=== PATIENT | female | born 1960 | race African-American/Black ===

== ENCOUNTER 2025-01-08 11:55 | Outpatient (REF) | payer OTHER, SELFPAY ==
--- OUTSIDE RECORDS SUMMARY | 2025-01-08 12:41 | XMS_ITS | Clinical Summary ---
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 done in [place]. Medical History Medical History Date Comments Hypertension DX:Hypertension Ectopic 2004 DX:Ectopic pre gnancy Family History Medical History Relation Name Comments Breast cancer Neg Hx Relation Name Status Comments Brother 1 Alive Brother 2 Alive Daughter Alive HTN Father (Age 82) unknown Mother (Age 60s) unknown Sister 1 Alive Sister 2 Alive Sister 3 Alive Sister 4 Alive Social History Tobacco Use Types Packs/Day Years Used Date Smoking Tobacco: Never Smokeless Tobacco: Never Alcohol Use Standard Drinks/Week Comments No 0 (1 standard drink = 0.6 oz pur e alcohol) Comments Unknown Sex and Gender Information Value Date Recorded Sex Assigned at Not on file Legal Sex Female 1:40 PM EST Gender Identity Not on file Sexual Orientation Not on file Obstetrics History Last Filed Vital Signs Vital Sign Reading Time Taken Comments Blood Pressure 99/72 01/13/2023 1:03 PM EDT Pulse 67 01/13/2023 1:03 PM EDT Temperature - - Respiratory Rate - - Oxygen Saturation - - Inhaled Oxygen Concentration - - Weight 94.5 kg (208 lb 6.4 oz) 01/13/2023 1:03 P M EDT Height 165.1 cm (5' 5 ) 01/13/2023 1:03 PM EDT Body Mass Index 34.68 01/13/2023 1:03 PM EDT Plan of Treatment Health Maintenance Due Date Last Done Comments Pneumococcal Vaccine: 50+ Years (1 of 1 - PCV) 2008 Zoster Vaccines (1 of 2) 2008 Cholesterol Screening (Lipid Panel) 05/14/2022 Colorectal Cancer Screening: Colonoscopy 05/14/2022 Hepatitis C Screening 05/14/2022 Social Influencers of Health Screening 05/14/2022 Hypertension/CHF/CAD Annual BMP Blood Test 05/15/2022 Falls Risk Assessment 10/27/2023 COVID-19 Vaccine (1 - season) 2024 Depression Screening 06/05/2024 Breast Cancer Screening 01/10/2025 01/11/20 23, 01/07/2022, 01/05/2021, Additional history exists Influenza Vaccine (#1) 2025 DTaP,Tdap,and Td Vaccines (2 - Td or Tdap) 08/30/2026 08/30/2016 Osteoporosis Screening (Bone Density Screening) 03/01/2032 03/01/2022, 09/12/2018 RSV Immunization Adult Patients (1 - 1-dose 75+ series) 2033 HIB Vaccines Aged Out No longer eligi ble based on patient's age to complete this topic HPV Vaccines Aged Out No longer eligi ble based on patient's age to complete this topic Hepatitis A Vaccines Aged Out No long er eligible based on patient's age to complete this topic Hepatitis B Vaccines Aged Out No long er eligible based on patient's age to complete this topic IPV Vaccines Aged Out No longer eligi ble based on patient's age to complete this topic MMR Vaccines Aged Out No longer eligi ble based on patient's age to complete this topic Meningococcal ACWY Vaccine Aged Out N o longer eligible based on patient's age to complete this topic Meningococcal B Vaccine Aged Out No l onger eligible based on patient's age to complete this topic RSV Immunization Patients Under 20 months Aged Out No longer eligible based on patient's age to complete this topic Varicella Vaccines Aged Out No longer eligible based on patient's age to complete this topic Procedures Procedure Name Priority Date/Time Associated Diagnosis Comments SAWYER SCREENING DIGITAL Routine 01/10/2023 10:16 AM EDT Encounter for screening mammogram for malignant neoplasm of breast DXA BONE DENSITY STUDY 1+ SITS AXIAL SKEL Routine 03/01/2022 10:41 AM EDT Hypercalcemia from Last 3 Months or Most Recently Relevant to Health Maintenance Results * SAWYER SCREENING DIGITAL (01/10/2023 10:16 AM EDT) Anatomical Region Laterality Modality Mammography 01/10/2023 9:48 AM EDT Narrative 01/10/2023 10:[address] [facility] Diagnostic Imaging Department [address] [place] [id number] Patient: BOWERSPRECIOUS /Age/Sex: 1960 - 62 - F Unit#: [id number] Location/Status: [facility] CLI Mnemonic/Ordering Site: [facility] Ordering Physician: ARVIND BUSTOS MD Sawyer Screening Digital - 01/10/23 - 1006 Report Status:Signed HISTORY: The patient is a 62-year-old female presenting for routine screening mammography. FINDINGS: Full-field digital mammography of the breasts bilaterally consisting of tomosynthesis in MLO and CC projection is performed in the Mulue 2000-D unit. Computer aided detection utilizing the iCAD system was utilized. The breasts are again seen to be largely fatty-replaced (the breasts are almost entirely fatty, category A density), as also demonstrated on prior studies most recently 01/07/2022 and most remotely 09/15/2017. There is no cluster of microcalcifications, mass, or area of architectural distortion. There is no skin thickening or nipple retraction. IMPRESSION: No mammographic evidence of malignancy. A negative mammogram in the presence of a clinically suspicious palpable abnormality does not preclude the possibility of malignancy or alter the indicat ions for biopsy. BIRADS Code Class 1: Negative PQRI CPT II 3341F Code 87984, 48214 PQRI 225 CPT II 7025F Dictating Physician: JOSE ARMANDO EID MD Electronically Signed by: JOSE ARMANDO EID MD Dic Date/Time: 01/10/23 1009 Sign date/Time: 01/10/23 1016 Procedure Note Jose Armando Eid MD - 07/11/2023 [facility] Diagnostic Imaging Department [address] [place] [address] Patient: PRECIOUS BOWERS./Age/Sex: 1960 - 62 - F Unit#: [id number] [facility]Ordering Site: [facility] Ordering Physician: ARVIND BUSTOS MD Sawyer Screening Digital - 01/10/23 - 1006 Report Status:Signed HISTORY: The patient is a 62-year-old female presenting for routinescreening mammography. FINDINGS: Full-field digital mammography of the breasts bilaterallyconsisting of tomosynthesis in MLO and CC projection is performed in the [employer] Checke 2000-D unit. Computer aided detection utilizing the iCAD system wasutilized. The breasts are again seen to be largely fatty-replaced (the breasts arealmost entirely fatty, category A density), as also demonstrated on prior studiesmost recently 01/07/2022 and most remotely 09/15/2017. There is no cluster of microcalcifications, mass, or area of architectural distortion. There isno skin thickening or nipple retraction. IMPRESSION: No mammographic evidence of malignancy. A negative mammogram in the presence of a clinically suspicious palpable abnormality does not preclude the possibility of malignancy or alter theindicat ions for biopsy. BIRADS Code Class 1: Negative PQRI CPT II 3341F Code 28111, 34993 PQRI 225 CPT II 7025F Dictating Physician: JOSE ARMANDO EID MD Electronically Signed by: JOSE ARMANDO EID MD Dic Date/Time: 01/10/23 1009 Sign date/Time: 01/10/23 1016 us Arvind Bustos MD IMG BI PROCEDURES Final R esult * DXA BONE DENSITY STUDY 1+ SITS AXIAL SKEL (03/01/2022 10:41 AM EDT) Anatomical Region Laterality Modality Bone Densitometr y 01/12/2022 2:27 PM EDT Narrative 03/01/2022 12:42 PM EDT BONE DENSITY SCAN (DEXA): FINDINGS: Lumbar Spine T-score is -1.9. (SD relative to 20-29 y/o adult) Z-score is -1.0. (SD relative to age matched peers) This is considered osteopenia by WHO criteria. Left Hip T-score is -1.5. Z-score is -0.7. This is considered osteopenia by WHO criteria. Comparison exam(s): 09/12/2018. 4.3% loss of bone mineral density in the left hip, statistically significant at the 95% confidence level. No statistically significant change in lumbar spine bone mineral density. IMPRESSION: IMPRESSION: Osteopenia by WHO criteria. This patient has a 3.6% risk of major osteoporotic fracture and a 0.3% risk of hip fracture over the next 10 years. (World Health Organization Fracture Risk Assessment) [facility] Department of Internal Medicine recommends using National Osteoporosis Foundation (NOF) guidelines in treatment decisions related to osteoporosis. NOF guidelines suggest considering treatment for postmenopausal women and men aged 50 or older presenting with the following: History of hip or vertebral fracture. T-score = -2.5 (DXA) at the femoral neck, total hip, or spine, after appropriate evaluation to exclude secondary causes. Low bone mass (T-score between -1.0 and -2.5 at the femoral neck or spine) AND a 10-year probability of a hip fracture = 3% OR a 10-year probability of a major osteoporosis-related fracture = 20% based on the [place]-adapted WHO algorithm Please note that all treatment decisions require clinical judgment and consideration of individual patient factors, including patient preferences, co-morbidities, previous drug use, risk factors not captured in the FRAX model (e.g., frailty, falls, vitamin D deficiency, increased bone turnover, interval significant decline in bone density) and possible under- or over-estimation of fracture risk by FRAX. Optional alternative screening schedule based on darrell Kern., [facility] June 23, 2011 for patients with osteopenia (based on hip BMD T-score) is as follows: * advanced osteopenia (T scores -2.00 to -2.49), BMD testing every year * moderate osteopenia (T scores -1.50 to -1.99), BMD testing every 5 years mild osteopenia or normal BMD (T scores -1.50 and higher), BMD testing every 15 years Procedure Note Lina De La Paz MD - 05/24/2022 BONE DENSITY SCAN (DEXA): FINDINGS: Lumbar Spine T-score is -1.9. (SD relative to 20-29 y/o adult) Z-score is -1.0. (SD relative to age matched peers) This is considered osteopenia by WHO criteria. Left Hip T-score is -1.5. Z-score is -0.7. This is considered osteopenia by WHO criteria. Comparison exam(s): 09/12/2018. 4.3% loss of bone mineral density in theleft hip, statistically significant at the 95% confidence level. No statisticallysignificant change in lumbar spine bone mineral density. IMPRESSION: IMPRESSION: Osteopenia by WHO criteria. This patient has a 3.6% risk of majorosteoporotic fracture and a 0.3% risk of hip fracture over the next 10 years. (World HealthOrganization Fracture Risk Assessment) [facility] Department of Internal Medicine recommendsusing National Osteoporosis Foundation (NOF) guidelines in treatment decisions related toosteoporosis. NOF guidelines suggest considering treatment for postmenopausal women and menaged 50 or older presenting with the following: History of hip or vertebral fracture. T-score = -2.5 (DXA) at the femoral neck, total hip, or spine, afterappropriate evaluation to exclude secondary causes. Low bone mass (T-score between -1.0 and -2.5 at the femoral neck or spine)AND a 10-year probability of a hip fracture = 3% OR a 10-year probability of a majorosteoporosis-related fracture = 20% based on the [place]-adapted WHO algorithm Please note that all treatment decisions require clinical judgment andconsideration of individual patient factors, including patient preferences, co- morbidities,previous drug use, risk factors not captured in the FRAX model (e.g., frailty, falls, vitaminD deficiency, increased bone turnover, interval significant decline in bone density) andpossible under- or over-estimation of fracture risk by FRAX. 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
--- OUTSIDE RECORDS SUMMARY | 2025-01-08 12:41 | XMS_ITS | Clinical Summary ---
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 30 tablet 3 01/09/20 25 Active Aspirin Low Dose 81 MG EC tabletIndications: Acute CVA (cerebrovascular accident) (CMS/HCC) Take 1 tablet (81 mg) by mouth Once per day. 30 tablet 01/09/20 25 025 Active atorvastatin (Lipitor) 40 MG tabletIndications: Hyperlipidemia, unspecified hyperlipidemia type Take 1 tablet (40 mg) by mouth Once per day. 30 tablet 01/09/20 25 025 Active carvedilol (Coreg) 6.25 MG tabletIndications: Acute CVA (cerebrovascular accident) (CMS/HCC) Take 1 tablet (6.25 mg) by mouth 2 times daily. 60 tablet 01/09/20 25 025 Active clopidogrel (Plavix) 75 MG tabletIndications: Acute CVA (cerebrovascular accident) (CMS/HCC) Take 1 tablet (75 mg) by mouth Once per day. 30 tablet 3 01/09/20 25 025 Active losartan (Cozaar) 50 MG tabletIndications: Acute CVA (cerebrovascular accident) (CMS/HCC) Take 1 tablet (50 mg) by mouth Once per day. 30 tablet 42 01/09/20 25 029 Active Blood Pressure kitIndications:Hyp ertensive urgency 1 kit in the morning. 1 kit 01/09/20 25 Active amLODIPine (Norvasc) 10 MG tablet Take 1 tablet by mouth Once per day. 10/15/19 22 025 Discontinued(Re order (will not trigger notification to Pharmacy)) Aspirin Low Dose 81 MG EC tablet Take 1 tablet by mouth Once per day. 12/27/19 025 Discontinued(Re order (will not trigger notification to Pharmacy)) atorvastatin (Lipitor) 40 MG tablet Take 1 tablet by mouth Once per day. 12/27/19 025 Discontinued(Re order (will not trigger notification to Pharmacy)) carvedilol (Coreg) 6.25 MG tablet Take 1 tablet by mouth 2 times daily. 12/27/19 025 Discontinued(Re order (will not trigger notification to Pharmacy)) clopidogrel (Plavix) 75 MG tablet Take 1 tablet by mouth Once per day. 12/27/19 025 Discontinued(Re order (will not trigger notification to Pharmacy)) losartan (Cozaar) 50 MG tablet Take 1 tablet by mouth Once per day. 07/29/19 025 Discontinued(Re order (will not trigger notification to Pharmacy)) Active Problems Problem Noted Date Diagnosed Date Class 1 obesity 01/07/2025 Hypertension 01/07/2025 Acute CVA (cerebrovascular accident) 01/07/2025 Intracranial vascular stenosis 01/07/2025 Hypertensive urgency 01/07/2025 Encounters Date Type Department Care Team Description 01/08/2025 10:15 AM EDT Office Visit [facility] [address] [place] [address] Miguelina Vu CNP Encounter to establish care (Primary Dx); Acute CVA (cerebrovascular accident) ([facility]); Intracranial vascular stenosis; Hypertensive urgency; Left-sided weakness; Hyperlipidemia, unspecified hyperlipidemia type 01/08/2025 Travel 01/01/2025 Patient Outreach [facility] [address] [place] [address] Miguelina Vu CNP Pre-visit Planning (SDOH negative, Tobacco screening negative.) 12/27/2024 Telephone [facility] [address] [place] [address] Yair Blackman MD CHW - New Patient Assistance from Last 3 Months Immunizations Immunization Administration Dates Next Due Tdap 08/30/2016 Social History Tobacco Use Types Packs/Day Years Used Date Smoking Tobacco: Never Smokeless Tobacco: Never Tobacco Cessation:Counseling Given: Not Answered Alcohol Use Standard Drinks/Week Comments Never 0 (1 standard drink = 0.6 oz pur e alcohol) Depression Answer Date Recorded Patient Health Questionnaire-9 Score 3 01/08/2025 Patient Health Questionnaire-9 Score 3 01/08/2025 Last PHQ-9: Questionnaire Data Not on file 0 01/08/2025 Housing Stability Answer Date Recorded What is your housing situation today? I have angelique villalba 01/01/[address] you li ve. Do you have problems with any of the following? None of the above 01/01/2025 Food Insecurity Answer Date Recorded Within the past 12 months, y ou worried that your food would run out before you got money to buy more: Never True 01/01/2025 Within the past 12 months,th e food you bought just didn't last and you didn't have enough money to get more: Never True Transportation Answer Date Recorded In the past 12 months, has l ack of transportation kept you from medical appts, meetings, work or from getting things needed for daily living? No 01/01/2025 Utilities Answer Date Recorded In the past 12 months, has t he electric, gas, oil or water company threatened to shut off services in your home? No 01/01/2025 Depression Answer Date Recorded Patient Health Questionnaire-2 Score 0 01/08/2025 Internet Access Answer Date Recorded Internet Access Q1 Yes 01/01/2025 Internet Access Q2 Not on file 01/01/2025 Comments Unknown Sex and Gender Information Value Date Recorded Sex Assigned at Female 12/27/2024 10:23 AM EDT Legal Sex Female 10:22 AM EDT Gender Identity Female 12/27/2024 10:23 AM EDT Sexual Orientation Straight 12/27/2024 10 :23 AM EDT Last Filed Vital Signs Vital Sign Reading Time Taken Comments Blood Pressure 140/88 01/08/2025 11:12 AM EDT Pulse 89 01/08/2025 10:38 AM EDT Temperature 36.9 C (98.5 F) 01/08/2025 10:38 AM EDT Respiratory Rate 20 01/08/2025 10:38 AM EDT Oxygen Saturation 98% 01/08/2025 10:38 AM EDT Inhaled Oxygen Concentration - - Weight 89.9 kg (198 lb 3.2 oz) 01/08/2025 10:38 AM EDT Height 164.5 cm (5' 4.76 ) 01/08/2025 10:38 AM E DT Body Mass Index 33.22 01/08/2025 10:38 AM EDT Plan of Treatment Health Maintenance Due Date Last Done Comments CT Colonography 1960 Colonoscopy 1960 Colorectal Cancer Screening 1960 FIT DNA/Cologuard 1960 FIT 1960 FOBT 1960 Lipid Panel 1960 Sigmoidoscopy 1960 Hepatitis C Screening 1976 Mammogram 1998 Pneumococcal Vaccine: 50+ Years (1 of 1 - PCV) 2008 Zoster Vaccines (1 of 2) 2008 COVID-19 Vaccine (2023-2 5 season) 2024 Influenza Vaccine (#1) 2025 SDOH Screening 01/01/2026 01/01/2025 Alcohol/Substance Use Screening 01/08/2026 01/08/2025 Depression Screening 01/08/2026 01/08/2025, 01/08/2025 Tobacco Screening 01/08/2026 01/08/2025 DTaP/Tdap/Td Vaccines (2 - T d or Tdap) 08/30/2026 08/30/2016 RSV Patients and Patients Aged 60 years or older (1 - 1-dose 75+ series) 2033 HIB [...] patient's age to complete this topic Meningococcal Vaccine Aged Out No madhuri buster eligible based on patient's age to complete this topic RSV under 20 months Aged Out No longe r eligible based on patient's age to complete this topic Rotavirus Vaccines Aged Out No longer eligible based on patient's age to complete this topic Insurance HSN FULL Care Teams 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
--- OUTSIDE RECORDS SUMMARY | 2025-01-08 12:41 | XMS_ITS | Clinical Summary ---
Author Organization [facility] Address [address] [address] Care Team Providers Care Cager Operator Name Role Phone Unavailable Primary Care Provider Unavailabl e Medications losartan (COZAAR) 50 MG tablet Take 1 tablet (50 mg total) by mouth 1 (one) time each day 90 tablet 3 07/29/2021 Active metoprolol succinate XL (TOPROL-XL) 100 MG 24 hr tablet TAKE 1 TABLET BY MOUTH EVERY DAY NEED INS 30 tablet 6 10/14/2021 Active spironolactone (ALDACTONE) 25 MG tablet TAKE 1 TABLET BY MOUTH EVERY DAY 30 tablet 6 10/14/2021 Active amLODIPine (NORVASC) 10 MG tablet TAKE 1 TABLET BY MOUTH EVERY DAY 30 tablet 6 10/14/2021 Active Social History Tobacco Use Types Packs/Day Years Used Date Smoking Tobacco: Never Assessed Comments Unknown Sex and Gender Information Value Date Recorded Sex Assigned at Not on file Legal Sex Female 4:50 PM EST Gender Identity Not on file Sexual Orientation Not on file Plan of Treatment Health Maintenance Due Date Last Done Comments Breast Cancer Screening 1960 Pneumococcal Vaccine: 50+ Ye ars (1 of 2 - PCV) 1977 Colorectal Cancer Screening: Annual FOBT 10/27/2007 Colorectal Cancer Screening: Colonoscopy 10/27/2007 Colorectal Cancer Screening: Sigmoidoscopy 10/27/2007 Influenza Vaccine (#1) 2025 Hepatitis B Vaccine Aged Out No longe r eligible based on patient's age to complete this topic
--- OUTSIDE RECORDS SUMMARY | 2025-01-08 12:41 | XMS_ITS ---
Author Name [facility] Organization Unknown Care Team Organization Name Specialty Phone Email Start Date End Da te [facility] Jovi Farmer Primary Care 04/12/20222023
[2025-01-08 13:39] LABS: MANUAL DIFF FLAG NO
[2025-01-08 13:45] LABS: Hematocrit 40.4 % (37.0-47.0); Hemoglobin 13.4 g/dl (12.0-16.0); Imm Gran Abs Auto 0.02 X10*3/uL (0.00-0.03); Imm Gran Pct Auto 0.4 % (0.0-0.4); Lymphocytes Absolute Auto 1.4 X10*3/uL (1.2-4.9); Mean Corpuscular HGB Conc 33.2 g/dl (31.0-35.0); Mean Corpuscular Hemoglobin 29.6 pg (27.0-33.0); Mean Corpuscular Volume 89.4 fL (80.0-98.0); NRBC Abs Auto 0.000 X10*3/uL (0.0-0.012); NRBC Pct Auto 0.0 /100WBC (0.0-0.2); Platelet Count 226 X10*3/uL (160-400); Red Blood Count 4.52 X10*6/uL (4.20-5.50); White Blood Count 5.6 X10*3/uL (4.8-10.8)
[2025-01-08 13:59] LABS: Hemoglobin A1C 169.1037 umol/L; Total Hemoglobin (HGBA1C) 3551.9598 umol/L
[2025-01-08 14:14] LABS: Anion Gap 14 (12-20); Blood Urea Nitrogen 24 mg/dL (9-16); Calcium 8.8 mg/dL (8.4-10.2); Carbon Dioxide 27 mmol/L (22-29); Chloride 107 mmol/L (96-108); Cholesterol 129 mg/dL (<200); Estimated Glomerular Filt Rate > 60; HDL Cholesterol 53 mg/dL (>40); Potassium 3.9 mmol/L (3.3-5.1); Sodium 144 mmol/L (135-145); Triglycerides 64 mg/dL (<150)
== END 2025-01-08 11:56 | disposition home or self-care (01) ==
LOC: HO.HHCL 11:55
DX: Z12.31 Encounter for screening mammogram for malignant neoplasm of breast (principal); Z76.89 Persons encountering health services in other specified circumstances; Z78.0 Asymptomatic menopausal state
CPT/HCPCS: 36415; 80048; 80061; 83036; 84443; 85025

== ENCOUNTER 2025-02-19 11:28 | Outpatient (REF) | payer OTHER, SELFPAY ==
--- OUTSIDE RECORDS SUMMARY | 2025-02-19 09:45 | XMS_ITS | Encounter Summary ---
Author Organization [employer] Address [address] [place] [address] Care Team Providers Care Stitching Machine Setter Name Role Phone Miguelina Vu CNP Primary Care Provider [phone] Reason for Referral * Imaging (Routine) - Authorized Specialty Diagnoses / Procedures Referred By Adonis raza Referred To Contact Cardiology Diagnoses Acute CVA (cerebrovascular accident) (CMS/HCC) Left ventricular dysfunction Procedures Transthoracic Echo (TTE) Complete Miguelina Vu CNP [address] [place] [address] Phone: tel: fax: [address] Phone: tel: fax: Referral ID Status Reason Start Date Expiration Date Visits Requested Visits Authorized [id number] Authorized Perform Procedure 02/19/2025 02/19/2026 1 1 Reason for Visit * Reason Comments Follow-up Chronic conditions Encounter Details Date Type Department Care Team (Latest Contact Info) Description 02/19/2025 9:45 AM EDT Office Visit [facility] [address] [place] [address] Miguelina Vu CNP [address] [place] [address] Type 2 diabetes mellitus with other specified [...] time -pt referred to OT however per scalp specialist, her insurance is not accepted anywhere [...] help guide mgmt Acute CVA (cerebrovascular accident) ([facility]) Relevant Medications clopidogrel (Plavix) 75 MG tablet [...] discuss possible eligibility for other insurance policy. Other Visit Diagnoses Type 2 diabetes mellitus with other specified complication, without long-term current use of insulin ([facility]) - Primary Relevant Orders Basic Metabolic Panel [...] Type Priority Associated Diagnoses Orde r Schedule Albumin, Random Urine W/Creatinine Lab Routine Type 2 diabetes mellitus with other specified complication, without long-term current use of insulin (CMS/HCC) Expected: 02/19/2025 (Approximate), Expires: 02/19/2026 XR Shoulder 2+ Views Left Imaging Routine Left arm pain Expected: 02/19/2025, Expires: 02/19/2026 Transthoracic Echo (TTE) Complete Echocardiography Routine Acute CVA (cerebrovascular accident) (CMS/HCC) Left ventricular dysfunction Expected: 02/19/2025 (Approximate), Expires: 02/19/2027 documented as of this encounter Procedures Procedure Name Priority Date/Time Associated Diagnosis Comments BASIC METABOLIC PANEL Routine 02/19/2025 11:29 AM EDT Type 2 diabetes mellitus with other specified complication, without long-term current use of insulin (CMS/HCC) HEMOGLOBIN A1C Routine 02/19/2025 11:25 AM EDT Type 2 diabetes mellitus with other specified complication, without long-term current use of insulin (CMS/HCC) POCT GLUCOSE Routine 02/19/2025 10:01 AM EDT Type 2 diabetes mellitus with other specified complication, without long-term current use of insulin (CMS/HCC) documented in this encounter Results * (ABNORMAL) Basic Metabolic Panel (02/19/2025 11:29 AM EDT) Sodium 142 135 - 145 mmol/L [facility] Potassium 3.8 3.3 - 5.1 mmol/L [facility] Chloride 104 96 - 108 mmol/L [facility] Carbon Dioxide 30(H) 22 - 29 mmol/L [facility] Anion Gap 12 12 - 20 [facility] Urea Nitrogen (BUN) 16 9 - 16 mg/dL [facility] Creatinine, Serum 0.83 0.5 - 1.4 mg/dL [facility] Estimated Glomerular Filt Rate >60 [facility] Comment:Chronic Kidney Disea se: Estimated GFR < 60 mL/min/[id number] Kidney Disease: Estimated GFR < 15 mL/min/1.73m2 Glucose 107 60 - 115 mg/dL [facility] Calcium 9.2 8.4 - 10.2 mg/dL [facility] Blood Venous blood specimen / Unknown 02/19/2025 11:29 AM EDT 02/19/2025 2:00 PM EDT [facility] LAB BLOOD ORDERABLES Rose l Result [facility] [address] [place] [phone] * (ABNORMAL) Hemoglobin A1c (02/19/2025 11:25 AM EDT) Hemoglobin A1c 6.4(H) <6.0 % [facility] Comment:Hemoglobin A1C Refer ence Range Adults: 4.8 - 6.0 % Non diabetic: < 6.0 % Goal: < 7.0 %Additional Action Suggested: > 8.0 %Note: Hemoglobin A1c results are invalid for patients with abnormal amounts of HbF. Blood transfusions may impact the HbA1c concentration in the patient sample. Estimated Average Glucose 137 mg/dL [facility] Comment:eAG = Estimated ave rage glucose which is %A1C expressed asaverage glucose, using the formula of the [id number] Glucose study (ADAG), Diabetes Care, Vol.31,#8,Jan. 2007 Blood Venous blood specimen / Unknown 02/19/2025 11:25 AM EDT 02/19/2025 2:00 PM EDT [facility] LAB BLOOD ORDERABLES Rose l Result [facility] [address] [place] [address] [phone] * (ABNORMAL) POCT glucose manually resulted (02/19/2025 10:01 AM EDT) Glucose Blood, POC 149 60 - 200 mg/dL QC Media Lot # Comment:[id number] Lot# Expiration Date Comment:05/24/2025 Blood Capillary blood specimen / Unknown 02/19/2025 10:01 AM EDT [facility] POINT OF CARE TEST ENTER/ EDIT ORDERABLES Final Result documented in this encounter Visit Diagnoses Diagnosis Type 2 diabetes mellitus with other specified complication, without long-term current use of insulin (CMS/HCC)- Primary Acute CVA (cerebrovascular accident) (CMS/HCC) Left arm pain Pain in soft tissues of limb Subluxation of left shoulder joint, initial encounter Hyperlipidemia, unspecified hyperlipidemia type Left ventricular dysfunction Left heart failure Primary hypertension Unspecified essential hypertension documented in this encounter Additional Health Concerns Assessment Noted Time PHQ-9 Depression Total Score: 3 01/09/20 25 11:15 AM EDT documented as of this encounter Care Teams Stitching Machine Setter Relationship Specialty Start Date End Date Miguelina Vu CNP PCP - General Family Medicine 01/08/25 documented as of this encounter
[2025-02-19 14:38] LABS: Hemoglobin A1C 164.0152 umol/L; Total Hemoglobin (HGBA1C) 3509.5319 umol/L
[2025-02-19 14:45] LABS: Anion Gap 12 (12-20); Blood Urea Nitrogen 16 mg/dL (9-16); Calcium 9.2 mg/dL (8.4-10.2); Carbon Dioxide 30 mmol/L (22-29); Chloride 104 mmol/L (96-108); Estimated Glomerular Filt Rate > 60; Potassium 3.8 mmol/L (3.3-5.1); Sodium 142 mmol/L (135-145)
--- OUTSIDE RECORDS SUMMARY | 2025-02-19 14:50 | XMS_ITS | Clinical Summary ---
Author Organization [employer] Address [address] [place] [address] Care Team Providers Care River Tester Name Role Phone Miguelina Vu ANTONIO Primary Care Provider [phone] Allergies No known active allergies Medications * This document contains information received from the source organization and may not represent a complete record from that organization. amLODIPine (Norvasc) 10 MG tabletIndications :Hypertensive urgency Take 1 tablet (10 mg) by mouth Once per day. 30 tablet 3 01/09/20 25 Active losartan (Cozaar) 50 MG tabletIndications :Acute CVA (cerebrovascular accident) ([facility]) Take 1 tablet (50 mg) by mouth Once per day. 30 tablet 42 01/09/20 25 2028 Active Blood Pressure kitIndications:Hy pertensive urgency 1 kit in the morning. 1 kit 01/09/20 25 Active metFORMIN (Glucophage) 500 MG tabletIndications :Type 2 diabetes mellitus with other specified complication, without long-term current use of insulin ([facility]) Take 1 tablet (500 mg) by mouth with breakfast and with evening meal. 60 tablet 01/16/20 25 2025 Active Blood Glucose Monitoring Suppl kitIndications:Ty pe 2 diabetes mellitus with other specified complication, without long-term current use of insulin ([facility]) 1 Units 3 times daily. 1 kit 01/16/20 25 Active FREESTYLE LITE test stripIndications: Type 2 diabetes mellitus with other specified complication, without long-term current use of insulin ([facility]) Use to test blood sugar three times daily 100 each 01/16/20 25 2025 Active Lancets miscIndications:T ype 2 diabetes mellitus with other specified complication, without long-term current use of insulin ([facility]) Use to test blood sugar three times daily 100 each 01/16/20 Active Alcohol Swabs 70 % padsIndications:T ype 2 diabetes mellitus with other specified complication, without long-term current use of insulin ([facility]) Use to test blood sugar three times daily 100 each 01/16/20 Active clopidogrel (Plavix) 75 MG tabletIndications :Cerebrovascular Accident Take 75 mg by mouth Once per day. 01/23/20 25 2024 Active Blood Glucose Monitoring Suppl (FreeStyle [place] Lite) w/Device kit TEST BLOOD SUGAR THREE TIMES DAILY 01/16/20 Active Aspirin Adult Low Strength 81 MG EC tabletIndications :Acute CVA (cerebrovascular accident) ([facility]) TAKE ONE TABLET EVERY DAY 30 tablet 02/20/20 25 Active carvedilol (Coreg) 6.25 MG tabletIndications :Acute CVA (cerebrovascular accident) ([facility]) Take 1 tablet (6.25 mg) by mouth 2 times daily. 60 tablet 02/20/20 25 2024 Active atorvastatin (Lipitor) 40 MG tabletIndications :Hyperlipidemia, unspecified hyperlipidemia type Take 1 tablet (40 mg) by mouth Once per day. 30 tablet 02/20/20 25 2024 Active Aspirin Low Dose 81 MG EC tabletIndications :Acute CVA (cerebrovascular accident) ([facility]) Take 1 tablet (81 mg) by mouth Once per day. 30 tablet 01/09/20 25 2024 Discontinued atorvastatin (Lipitor) 40 MG tabletIndications :Hyperlipidemia, unspecified hyperlipidemia type Take 1 tablet (40 mg) by mouth Once per day. 30 tablet 01/09/20 25 2024 Discontinued(R eorder (will not trigger notification to Pharmacy)) carvedilol (Coreg) 6.25 MG tabletIndications :Acute CVA (cerebrovascular accident) ([facility]) Take 1 tablet (6.25 mg) by mouth 2 times daily. 60 tablet 01/09/20 25 2024 Discontinued(R eorder (will not trigger notification to Pharmacy)) clopidogrel (Plavix) 75 MG tabletIndications :Acute CVA (cerebrovascular accident) ([facility]) Take 1 tablet (75 mg) by mouth Once per day. 30 tablet 3 01/09/20 25 2024 Active Problems Problem Noted Date Diagnosed Date Encounter to establish care 01/08/2025 Assessment & Plan (01/08/2025 1:17 PM EDT): Routine Screening and Health Maintenance Optometry: No Dentist: No BMD: due, ordered today ASCVD risk: 64 y.o. femalehypertension hyperlipidemia prior CVA/TIA or known carotid artery disease Lab Review: orders written for new lab studies as appropriate; see orders Routine Cancer Screening Breast CA: due, ordered today Cervical CA: pap? Reported her last pap was about 2 years ago. Had total hysterectomy. Records are pending. Colon CA: due, ordered today Pt also would benefit from FOOD PRODUCTION MANAGER services, due to insurance coverage we will table this request for now until pt and her daughter sort out insurance coverage. Anxiety 01/08/2025 Assessment & Plan (01/08/2025 1:16 PM EDT): Pt subjectively expresses anxiety Had in office consult today to discuss services and insurance coverage Advised pt to discuss change of insurance with enrollment services to help expand access to services. Pt agrees that this is possible and her and her daughter will work on this. In the meantime, I will revisit topic at 1 month follow up and consider pharmacologic management to bridge care with hopes to eventually get pt psychotherapy services. 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 Pt with anxiety symptoms associated with her medical condition. Precious had a stroke recently and reported since then she has been experiencing anxiety. Sxs are not better explained by another primary mental disorder. Pt feels anxious and stressed due to becoming dependent on others now. Her adult children and sister are currently taking care of her during this transition of recovery. Class 1 obesity 01/07/2025 Hypertension 01/07/2025 Acute CVA (cerebrovascular accident) 01/07/2025 Assessment & Plan (01/08/2025 1:09 PM EDT): ABCD2 score: 5 Dual antiplatelet therapy indicated for 90 days, after 90 days single antiplatelet therapy with aspirin recommended, I sent refills today. Pt has left sided weakness in LUE. Gait is intact. No trouble breathing or swallowing. Recommended OT for strength and coordination of left side. Advised tight control of BP <140/90 (BP kit sent home), optimization of statin therapy, lipid panel ordered today. I referred to cardiology for OP consult. Pt has neurology appointment in 02/2025. F/u in 1 month Intracranial vascular stenosis 01/07/2025 Hypertensive urgency 01/07/2025 Assessment & Plan (01/08/2025 1:13 PM EDT): BP at goal of <140/90 Continue on current medications Prescribed BP monitor today Continue on aspirin and plavix Lifestyle Modifications: Low sodium DASH diet Regular aerobic exercise (>=150 min/week) Weight loss if BMI >25 Limit alcohol, avoid tobacco Follow-up: 1 month Referral: Cardiology Patient Education: Provided verbal/written education on BP goals and home monitoring Emphasized adherence to medication and follow-up Encounters * This document contains information received from the source organization and may not represent a complete record from that organization. Date Type Department Care Team Description 02/19/2025 9:45 AM EDT Office Visit [facility] [address] [place] [address] Miguelina Vu CNP Type 2 diabetes mellitus with other specified complication, without long-term current use of insulin (CMS/HCC) (Primary Dx); Acute CVA (cerebrovascular accident) (CMS/HCC); Left arm pain; Subluxation of left shoulder joint, initial encounter; Hyperlipidemia, unspecified hyperlipidemia type; Left ventricular dysfunction; Primary hypertension 02/19/2025 Telephone [facility] [address] [place] [address] Miguelina Vu CNP Letter for School/Work 02/19/2025 Refill [facility] [address] [place] [address] Miguelina Vu CNP Acute CVA (cerebrovascular accident) (CMS/HCC) 02/19/2025 Travel 02/12/2025 Patient Outreach [facility] [address] [place] [address] Miguelina Vu CNP Pre-visit Planning (Pre visit planning LVM ) 02/05/2025 Telephone [facility] [address] [place] [address] Renetta Boles, OD 02/04/2025 Telephone [facility] [address] [place] [address] Miguelina Vu CNP chart prep 01/15/2025 Refill [facility] [address] [place] [address] Hyacinth Galeana, BELTRAN Type 2 diabetes mellitus with other specified complication, without long-term current use of insulin ([facility]) 01/15/2025 Orders Only [facility] [address] [place] [address] Miguelina Vu CNP Type 2 diabetes mellitus with other specified complication, without long-term current use of insulin ([facility]) (Primary Dx) 01/15/2025 Results Follow-Up [facility] [address] [place] [address] Miguelina Vu CNP Basic Metabolic Panel, CBC auto differential, TSH W/Reflex to FT4, Additional followed-up results: 2 01/08/2025 10:15 AM EDT Office Visit [facility] [address] [place] [address] Miguelina Vu CNP Encounter to establish care (Primary Dx); Acute CVA (cerebrovascular accident) ([facility]); Intracranial vascular stenosis; Hypertensive urgency; Left-sided weakness; Hyperlipidemia, unspecified hyperlipidemia type; Postmenopause; Encounter for screening mammogram for breast cancer; Encounter for screening for malignant neoplasm of colon; Anxiety 01/08/2025 Travel 01/01/2025 Patient Outreach [facility] [address], [place] [phone] Miguelina Vu CNP Pre-visit Planning (SDOH negative, Tobacco screening negative.) 12/27/2024 Telephone [facility] [address], [place] [phone] Yair Blackman MD CHW - New Patient [...] Mass Index 32.19 02/19/2025 10:00 AM EDT Plan of Treatment Health Maintenance Due Date Last Done Comments CT Colonography 1958 Colonoscopy 1958 Colorectal Cancer Screening 1958 FIT DNA/Cologuard 1958 FIT 1958 FOBT 1958 Sigmoidoscopy 1958 Diabetes: Foot Exam 1968 Eye Exam 1968 Hepatitis C Screening 1976 Diabetes: Urine Protein Screening 1977 Pneumococcal Vaccine: 50+ Years (1 of 2 - PCV) 1977 Mammogram 1998 Zoster Vaccines (1 of 2) 2008 COVID-19 Vaccine ( - 2023-2 5 season) 2025 Influenza Vaccine (#1) 2025 Diabetes: Hemoglobin A1C 07/11/2025 025, 01/08/2025 SDOH Screening 01/01/2026 01/01/2025 Alcohol/Substance Use Screening 01/08/2026 01/08/2025 Depression Screening 01/08/2026 01/08/2025, 01/08/2025 Lipid Panel 01/08/2026 01/08/2025 Tobacco Screening 01/08/2026 01/08/2025 DTaP/Tdap/Td Vaccines [...] complication, without long-term current use of insulin ([facility]) HEMOGLOBIN A1C Routine 02/19/2025 11:25 AM EDT Type 2 diabetes mellitus with other specified complication, without long-term current use of insulin ([facility]) POCT GLUCOSE Routine 02/19/2025 10:01 AM EDT Type 2 diabetes mellitus with other specified complication, without long-term current use of insulin ([facility]) HEMOGLOBIN A1C Routine 01/08/2025 12:06 PM EDT Encounter to establish care LIPID PANEL, STANDARD Routine 01/08/2025 12:06 PM EDT Encounter to establish care TSH W/REFLEX TO FT4 Routine 01/08/2025 1 2:06 PM EDT Encounter to establish care CBC WITH AUTO DIFFERENTIAL Routine 01/08/2025 12:06 PM EDT Encounter to establish care BASIC METABOLIC PANEL Routine 01/08/2025 12:06 PM EDT Encounter to establish care from Last 3 Months Results * (ABNORMAL) Basic Metabolic Panel (02/19/2025 11:29 AM EDT) Only the most recent of2 resultswithin the time period is included. Sodium 142 135 - 145 mmol/L [facility] Potassium 3.8 3.3 - 5.1 mmol/L [facility] Chloride 104 96 - 108 mmol/L [facility] Carbon Dioxide 30(H) 22 - 29 mmol/L [facility] Anion Gap 12 12 - 20 [facility] Urea Nitrogen (BUN) 16 9 - 16 mg/dL [facility] Creatinine, Serum 0.83 0.5 - 1.4 mg/dL [facility] Estimated Glomerular Filt Rate >60 [facility] Comment:Chronic Kidney Disea se: Estimated GFR < 60 mL/min/[id number] Kidney Disease: Estimated GFR < 15 mL/min/1.73m2 Glucose 107 60 - 115 mg/dL [facility] Calcium 9.2 8.4 - 10.2 mg/dL [facility] Blood Venous blood specimen / Unknown 02/19/2025 11:29 AM EDT 02/19/2025 2:00 PM EDT [facility] LAB BLOOD ORDERABLES Rose l Result [facility] [address] [place] [phone] * (ABNORMAL) Hemoglobin A1c (02/19/2025 11:25 AM EDT) Only the most recent of2 resultswithin the time period is included. Hemoglobin A1c 6.4(H) <6.0 % [facility] Comment:Hemoglobin A1C Refer ence Range Adults: 4.8 - 6.0 % Non diabetic: < 6.0 % Goal: < 7.0 %Additional Action Suggested: > 8.0 %Note: Hemoglobin A1c results are invalid for patients with abnormal amounts of HbF. Blood transfusions may impact the HbA1c concentration in the patient sample. Estimated Average Glucose 137 mg/dL [facility] Comment:eAG = Estimated ave rage glucose which is %A1C expressed asaverage glucose, using the formula of the [id number]-[id number] Glucose study (ADAG), Diabetes Care, Vol.31,#8,Aug. 2007 Blood Venous blood specimen / Unknown 02/19/2025 11:25 AM EDT 02/19/2025 2:00 PM EDT Result [facility] LAB BLOOD ORDERABLES Rose l Result Performing Organization Address [facility] Co de Phone Number [facility] [address] [place] [address] [phone] * (ABNORMAL) POCT glucose manually resulted (02/19/2025 10:01 AM EDT) Pathologist [facility] Glucose Blood, POC 149 60 - 200 mg/dL [employer] Media Lot # Comment:[id number] Lot# Expiration Date Comment:05/24/2025 Blood Capillary blood specimen / Unknown 02/19/2025 10:01 AM EDT Result [facility] POINT OF CARE TEST ENTER/ EDIT ORDERABLES Final Result * TSH W/Reflex to FT4 (01/08/2025 12:06 PM EDT) Pathologist [facility] TSH reflex Free T4 2.26 0.32 - 4.0 uIU/mL [facility] Blood Venous blood specimen / Unknown 01/08/2025 12:06 PM EDT 01/08/2025 1:36 PM EDT Result [facility] LAB BLOOD ORDERABLES Rose l Result Performing Organization Address [facility] Co de Phone Number [facility] [address] [place] [address] [phone] * CBC auto differential (01/08/2025 12:06 PM EDT) White Blood Count 5.6 4.8 - 10.8 X10*3/uL [facility] Red Blood Count 4.52 4.20 - 5.50 X10*6/uL [facility] Hemoglobin 13.4 12.0 - 16.0 g/dl [facility] Hematocrit 40.4 37.0 - 47.0 % [facility] Mean Corpuscular Volume 89.4 80.0 - 98.0 fL [facility] Mean Corpuscular Hemoglobin 29.6 27.0 - 33.0 pg [facility] Mean Corpuscular HGB Conc 33.2 31.0 - 35.0 g/dl [facility] Red Cell Distribution Width 13.4 11.0 - 16.0 % [facility] Platelet Count 226 160 - 400 X10*3/uL [facility] Mean Platelet Volume 11.3 9.4 - 12.3 fL [facility] Neutrophils Percent Auto 66.4 45 - 73 % [facility] Imm Gran Pct Auto 0.4 0.0 - 0.4 % [facility] Lymphocytes Percent Auto 24.7 20 - 40 % [facility] Monocytes Percent Auto 5.5 2 - 11 % [facility] Eosinophils Percent Auto 2.5 0 - 4 % [facility] Basophils Percent Auto 0.5 0 - 2 % [facility] NRBC Pct Auto 0.0 0.0 - 0.2 /100WBC [facility] Neutrophils Absolute Auto 3.7 2.0 - 8.3 x10*3/uL [facility] Imm Gran Abs Auto 0.02 0.00 - 0.03 X10*3/uL [facility] Lymphocytes Absolute Auto 1.4 1.2 - 4.9 X10*3/uL [facility] Monocytes Absolute Auto 0.3 0.1 - 1.2 X10*3/uL [facility] Eosinophils Absolute Auto 0.1 0.0 - 0.4 X10*3/uL [facility] Basophils Absolute Auto 0.0 0.0 - 0.2 X10*3/uL [facility] NRBC Abs Auto 0.000 0.0 - 0.012 X10*3/uL [facility] Blood Venous blood specimen / Unknown 01/08/2025 12:06 PM EDT 01/08/2025 1:36 PM EDT [facility] LAB BLOOD ORDERABLES Rose l Result Performing Organization Address [facility] Co de Phone Number [facility] [address] [place] [address] [phone] * Lipid Panel, Standard (01/08/2025 12:06 PM EDT) Triglycerides 64 <150 mg/dL [facility] Comment:Desirable Triglyceri de: less than 150 mg/dLBorderline High Triglyceride 150-199 mg/dLHigh Triglyceride: 200-499 mg/dLVery High Triglyceride: greater than or equal to 5OO mg/dL Cholesterol 129 <200 mg/dL [facility] Comment:Desirable Cholestero l: less than 200 mg/dLBorderline High Cholesterol: 200-239 mg/dLHigh Cholesterol: greater than 239 mg/dL LDL Cholesterol Calculated 64 <100 mg/dL [facility] Comment:Desirable LDL: less than 100 mg/dLNear Optimal/Above Optimal LDL: 110- 129 mg/dLBorderline High LDL: 130-159 mg/dLHigh LDL: 160-189 mg/dLVery High LDL: greater than or equal to 190 mg/dL HDL Cholesterol 53 >40 mg/dL [facility] Comment:Desirable HDL: great er than 40 mg/dL Note: This HDL assay may give artificially low results in patients with liver disease. Blood Venous blood specimen / Unknown 01/08/2025 12:06 PM EDT 01/08/2025 1:36 PM EDT [facility] LAB BLOOD ORDERABLES Rose l Result Performing Organization Address City/[facility]/ZIP Co de Phone Number [facility] [address] [place] [address] [phone] from Last 3 Months Insurance HSN FULL Care Teams River Tester Relationship Specialty Start Date End Date Miguelina Vu CNP PCP - General Family Medicine 01/08/25
--- OUTSIDE RECORDS SUMMARY | 2025-02-19 14:50 | XMS_ITS | Clinical Summary ---
Author Organization [facility] Facility Address [address] [address] Care Team Providers Care Airplane Pilot Chief Name Role Phone Unavailable Primary Care Provider [...]
--- OUTSIDE RECORDS SUMMARY | 2025-02-19 14:50 | XMS_ITS | Encounter Summary ---
Author Organization [employer] Address [address] [place] [address] Care Team Providers Care Gas Torch Brazier Name Role Phone Miguelina Vu ANTONIO Primary Care Provider [phone] Encounter Details Date Type Department Care Team (Latest Contact Info) Description 02/19/2025 Travel Social History Tobacco Use Types Packs/Day Years [...] AM EDT documented as of this encounter Plan of Treatment Not on file documented as of this encounter Visit Diagnoses Not on filedocumented in this encounter Additional Health Concerns Assessment Noted Time PHQ-9 Depression Total Score: 3 01/09/20 11:15 AM EDT documented as of this encounter Care Teams Gas Torch Brazier Relationship Specialty Start Date End Date Miguelina Vu CNP PCP - General Family Medicine 01/08/25 documented as of this encounter
--- OUTSIDE RECORDS SUMMARY | 2025-02-19 14:50 | XMS_ITS | Encounter Summary ---
Author Organization [employer] Address [address] [place] [address] Care Team Providers Care Drywall Hanger Framer Name Role Phone Miguelina Vu CNP Primary Care Provider [phone] Reason for Visit * Reason Onset Date Comments Letter for School/Work 02/19/2025 Encounter Details Date Type Department Care Team ([facility] st Contact Info) Description 02/19/2025 Telephone [facility] [address] [place] [address] Miguelina Vu CNP [address] [place], [place] [phone] Letter for School/Work Social History Tobacco Use Types Packs/Day Years [...] AM EDT documented as of this encounter Miscellaneous Notes * Telephone Encounter - Alec Humphrey - 02/19/2025 1:01 PM EDT TC from daughter reports pt was seen today by ASHLEY Vu . Needing excuse letter to provide to her work documented in this encounter Plan of Treatment Not on file documented as of this encounter Visit Diagnoses Not on filedocumented in this encounter Additional Health Concerns Assessment Noted Time PHQ-9 Depression Total Score: 3 01/09/20 11:15 AM EDT documented as of this encounter Care Teams Drywall Hanger Framer Relationship Specialty Start Date End Date Miguelina Vu CNP PCP - General Family Medicine 01/08/25 documented as of this encounter
--- OUTSIDE RECORDS SUMMARY | 2025-02-19 14:50 | XMS_ITS | Encounter Summary ---
Author Organization [employer] Address [address] [place] [address] Care Team Providers Care Funeral Attendant Name Role Phone Miguelina Vu CNP Primary Care Provider [phone] Reason for Visit * Reason Comments Med Refill Encounter Details Date Type Department Care Team (Late st Contact Info) Description 02/19/2025 Refill [facility] [address] [place], [place] [phone] Miguelina Vu CNP [address] [place], [place] [phone] Acute CVA (cerebrovascular accident) ([facility]) Social History Tobacco Use Types Packs/Day Years [...] documented as of this encounter Visit Diagnoses Diagnosis Acute CVA (cerebrovascular accident) (CMS/HCC) documented in this encounter Additional Health Concerns Assessment Noted Time PHQ-9 Depression Total Score: 3 01/09/20 25 11:15 AM EDT documented as of this encounter Care Teams Funeral Attendant Relationship Specialty Start Date End Date Miguelina Vu CNP PCP - General Family Medicine 01/08/25 documented as of this encounter
[2025-02-19 14:58] LABS: Microalbum/Creatinine Ratio Ur 26.8 ug/mg cr (<30)
== END 2025-02-19 11:29 | disposition home or self-care (01) ==
LOC: HO.CHCLDS 11:28
DX: E11.69 Type 2 diabetes mellitus with other specified complication (principal)
CPT/HCPCS: 36415; 80048; 82043; 82570; 83036

== ENCOUNTER 2025-02-24 10:26 | Outpatient (REF) | payer OTHER, SELFPAY ==
--- OUTSIDE RECORDS SUMMARY | 2025-02-19 09:45 | XMS_ITS | Encounter Summary ---
Author Organization [employer] Address [address] [place] [address] [address] [place] [address] Care Team Providers Care Production Grip Name Role Phone Miguelina Vu CNP Primary Care Provider [phone] Reason for Referral * Imaging (Routine) - Authorized Specialty Diagnoses / Procedures Referred By Adonis raza Referred To Contact Cardiology Diagnoses Acute CVA (cerebrovascular accident) (CMS/HCC) Left ventricular dysfunction Procedures Transthoracic Echo (TTE) Complete Miguelina Vu CNP [address] [place] [address] Phone: tel: fax: [address] Phone: tel: fax: Referral ID Status Reason Start Date Expiration Date Visits Requested Visits Authorized [id number] Authorized Perform Procedure 02/19/2025 02/19/2026 1 1 Reason for Visit * Reason Comments Follow-up Chronic conditions Encounter Details Date Type Department Care Team (Latest Contact Info) Description 02/19/2025 9:45 AM EDT Office Visit [facility] [address] [place] [address] Miguelina Vu CNP [address] [place] [address] Type 2 diabetes mellitus with other specified complication, without long-term current use of insulin (CMS/HCC) (Primary Dx); Acute CVA (cerebrovascular accident) (CMS/HCC); Left arm pain; Subluxation of left shoulder joint, initial encounter; Hyperlipidemia, unspecified hyperlipidemia type; Left ventricular dysfunction; Primary hypertension Social History Tobacco Use Types Packs/Day Years Used Date Smoking Tobacco: Never Smokeless Tobacco: Never Alcohol Use Standard Drinks/Week Comments Never 0 (1 standard drink = 0.6 oz pur e alcohol) Depression Answer Date Recorded Patient Health Questionnaire-9 Score 3 01/08/2025 Patient Health Questionnaire-9 Score 3 01/08/2025 Last PHQ-9: Questionnaire Data Not on file 0 01/08/2025 Housing Stability Answer Date Recorded What is your housing situation today? I have angeliquegregg villalba 01/01/[address] you [...] Orientation Straight 12/27/2024 10 :23 AM EDT documented as of this encounter Last Filed Vital Signs Vital Sign Reading Time Taken Comments Blood Pressure 130/89 02/19/2025 10:58 AM EDT Pulse 90 02/19/2025 10:00 AM EDT Temperature 36.6 C (97.9 F) 02/19/2025 10:00 AM EDT Respiratory Rate 12 02/19/2025 10:00 AM EDT Oxygen Saturation 99% 02/19/2025 10:00 AM EDT Inhaled Oxygen Concentration - - Weight 87.1 kg (192 lb) 02/19/2025 10:00 AM EDT Height 164.5 cm (5' 4.76 ) 02/19/2025 10:00 AM E DT Body Mass Index 32.19 02/19/2025 10:00 AM EDT documented in this encounter Progress Notes * Miguelina Vu CNP - 02/19/2025 9:45 AM EDT Images from the original note were not included. Subjective Patient ID: Precious Saucedo is a 64 y.o. female who presents for follow up on chronic conditions. HPI - Regained movement in left arm since last week Monday, but experiencing intermittent sharp pain inleft arm - No numbness or tingling in left arm; sensation intact, no redness, warmth or swelling - Newly diagnosed diabetes; taking metformin twice daily; no side effects from metformin - Blood pressure checks at home, sometimes high in the morning before medication; blood pressure comes down after medication - Denies chest pain, dizziness, headaches, and shortness of breath - No falls in past 6 months to a year except for initial hospital visit; occasional stumbling whilewalking - Difficulty with insurance coverage for cardiology and occupational therapy referrals - Daughter and sister present for support - Financial concerns related to insurance eligibility and supplemental income Interim History: -pt with newly diagnosed T2DM, she was started on metformin 500 BID, denies any side effects from medication. Last A1c 6.5 01/08/2025. Pt on statin, pt on plavix and aspirin for stroke prevention; ABCD2 score: 5 Dual antiplatelet therapy indicated for 90 days, after 90 days single antiplatelet therapy with aspirin recommended, I sent refills today. Pt on ARB. - pt had acute CVA in November. Mental health has been suffering since this occurred. She had in officeconsult at our [facility] with , she was advised to reach out to team as needed, no referrals to services were provided at this time. Recent Imaging -Pt supposed to have neurology f/u in 02/2025? - I referred pt to cardiology for OP consult, her insurance is not accepted anywhere at this time -pt referred to OT however per recreation program specialist, her insurance is not accepted anywhere at this time. Review of Systems Constitutional: Negative for chills, fatigue and fever. HENT: Negative. Eyes: Negative. Respiratory: Negative for cough, chest tightness, shortness of breath and wheezing. Cardiovascular: Negative for chest pain and palpitations. Gastrointestinal: Negative for abdominal pain, constipation, diarrhea, nausea and vomiting. Genitourinary: Negative. Neurological: Negative for dizziness, seizures, syncope, facial asymmetry, speech difficulty, weakness, light-headedness, numbness and headaches. Objective Visit Vitals BP 130/89 (BP Location: Right arm, Patient Position: Sitting, BP Cuff Size: Large adult) Pulse 90 Temp 97.9 ??F (36.6 ??C) (Oral) Resp 12 Ht 5' 4.76 (1.645 m) Wt 192 lb (87.1 kg) SpO2 99% BMI 32.19 kg/m?? Smoking Status Never BSA 1.99 m?? Physical Exam Constitutional: Appearance: Normal appearance. She is normal weight. Cardiovascular: Rate and Rhythm: Normal rate and regular rhythm. Pulses: Normal pulses. Radial pulses are 2+ on the right side and 2+ on the left side. Dorsalis pedis pulses are 2+ on the right side and 2+ on the left side. Posterior tibial pulses are 2+ on the right side and 2+ on the left side. Heart sounds: Normal heart sounds. No murmur heard. No friction rub. No gallop. Pulmonary: Effort: Pulmonary effort is normal. No respiratory distress. Breath sounds: Normal breath sounds. No wheezing or rales. Musculoskeletal: Right lower leg: No edema. Left lower leg: No edema. Skin: General: Skin is warm and dry. Capillary Refill: Capillary refill takes less than 2 seconds. Findings: No erythema or rash. Neurological: General: No focal deficit present. Mental Status: She is alert and oriented to person, place, and time. Cranial Nerves: Cranial nerves 2-12 are intact. Sensory: Sensation is intact. Motor: Motor function is intact. Coordination: Coordination is intact. Comments: Strength 5/5 RUE, strength 3/5 LUE Strength RLE 5/5, strength LLE 5/5 Psychiatric: Mood and Affect: Mood normal. Behavior: Behavior normal. Thought Content: Thought content normal. Judgment: Judgment normal. Assessment/Plan Problem List Items Addressed This Visit Primary Hypertension BP mildly elevated, goal for diabetics <130/80, home readings appear normal, pt brought monitor in office today Pt is on ARB - cozaar 50mg which is first line for LVH regression Future consideration for adding Thiazide diuretic for volume control and further BP reduction, especially in the presence of LA enlargement Advised pt to focus on low sodium diet and adequate hydration Pt to continue checking BP once daily 1-2 hours after taking medication and will call office if >130/80 Plan to repeat echo to help guide mgmt Acute CVA (cerebrovascular accident) ([facility]) Relevant Medications clopidogrel (Plavix) 75 MG tablet ABCD2 score: 5 Dual antiplatelet therapy indicated for 90 days, after 90 days single antiplatelet therapy with aspirin recommended, I sent refills today. Pt still has some residual left sided weakness in LUE, however strength and coordination and ROM has substantially improved since last visit. Gait is intact. No trouble breathing or swallowing. Advised tight control of BP <140/90 (BP kit sent home), optimization of statin therapy. Advised tight control of A1c, continue anti diabetic medications and lifestyle modifications as discussed Pt insurance does not cover OP cardiology consult at this time. I will order repeat echo to confirm left ventricular function, Pt plans to meet with insurance enrollment advisors to discuss possible eligibility for other insurance policy. Pt insurance also not covering OT at this time, however pt would benefit from strengthening exercises and supportive devices for ambulation/mobility. I will submit a request for a walker at this timeas well. Other Visit Diagnoses Type 2 diabetes mellitus with other specified complication, without long-term current use of insulin ([facility]) - Primary Relevant Orders Basic Metabolic Panel Albumin, Random Urine W/Creatinine POCT glucose manually resulted (Completed) Hemoglobin A1c A1c at goal<7, continue on metformin 500mg BID FBG <126 based on home readings Maintenance BMP: ordered today Microalbumin: ordered today Foot Exam: completed today 02/19/2025-normal Eye Exam: due, will request eye exam Lipid panel: UTD, on stain therapy Statin: yes ASA: yes PONCHO/ARB: yes Treatment Goals: A1c goal: <7% FBG goal: <130 2 hour post prandial goal: <180 Advised Low sugar and Low carb diet. Counseled regarding self-monitoring of blood glucose. Counseled re: potential co-morbidities including cardiovascular disease. Counseled re: potential co-morbidities include neuropathy and retinopathy. Counseled re: potential co-morbidities include nephropathy. Left arm pain Relevant Orders XR Shoulder 2+ Views Left Subluxation of left shoulder joint, initial encounter Based on pts presenting sx and PE, consideration for L shoulder subluxation 2/2 acute right sided CVA; differentials: Rotator cuff tendinopathy or tear, cervical radiculopathy. From a cardiac standpoint pt is stable, no CP, SOB, [place], dizziness, changes in mentation. Her pulses are intact and symmetric throughout. No s/sx of UE DVT. Will obtain L shoulder XR Consider further evaluation for associated soft-tissue injury with ultrasound if XR negative Non pharm interventions recommended including a sling for support and to improve upper extremity function and independence in ADLs. I also recommended active shoulder exercise to enhance upper extremity function Tylenol prn for pain relief F/u 2 months documented in this encounter Plan of Treatment Scheduled Orders Name Type Priority Associated Diagnoses Orde r Schedule Transthoracic Echo (TTE) Complete Echocardiography Routine Acute CVA (cerebrovascular accident) (CMS/HCC) Left ventricular dysfunction Expected: 02/19/2025 (Approximate), Expires: 02/19/2027 documented as of this encounter Procedures Procedure Name Priority Date/Time Associated Diagnosis Comments XR SHOULDER 2+ VIEWS LEFT Routine 02/24/2025 10:52 AM EDT Left arm pain ALBUMIN, RANDOM URINE W/CREATININE Routine 02/19/2025 11:30 AM EDT Type 2 diabetes mellitus with other specified complication, without long-term current use of insulin ([facility]) BASIC METABOLIC PANEL Routine 02/19/2025 11:29 AM EDT Type 2 diabetes mellitus with other specified complication, without long-term current use of insulin (CMS/HCC) HEMOGLOBIN A1C Routine 02/19/2025 11:25 AM EDT Type 2 diabetes mellitus with other specified complication, without long-term current use of insulin ([facility]) POCT GLUCOSE Routine 02/19/2025 10:01 AM EDT Type 2 diabetes mellitus with other specified complication, without long-term current use of insulin ([facility]) documented in this encounter Results * XR Shoulder 2+ Views Left (02/24/2025 10:52 AM EDT) Anatomical Region Laterality Modality Upper Extremities, Shoulder Left Radi ographic Imaging 02/24/2025 10:5 2 AM EDT Narrative 02/24/2025 11:01 AM EDT [facility] [address] [place] [address] XRay Report Signed Patient: Precious Saucedo MR#: [id number] 1 : 1960 Acct:[id number] Age/Sex: 64 / F ADM Date: 02/24/25 Loc: HO.[facility] Attending Dr: Miguelina Vu CONSTRUCTION CRAFT LABORER Ordering Physician: Miguelina Vu NP Date of Service: 02/24/25 Procedure(s): XR shoulder LT min 2V Accession Number(s): [id number] cc: Miguelina Vu NP Reason for Exam: L arm pain EXAMINATION: XR SHOULDER, LEFT CLINICAL INFORMATION: L arm pain COMPARISON: None available. TECHNIQUE: AP external rotation, Grashey, scapular Y, and axillary views of the left shoulder. FINDINGS: There has been resection of distal clavicle versus chronic resorption. AC joint is unremarkable otherwise. There are marginal osteophytes involving glenoid and humeral head. There are likely degenerative cystic changes in the lower glenoid. No other abnormalities are evident. 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 Electronically signed by: Tomer Bloom MD 02/24/2025 10:58 AM EDT Dictated By: Tomer Bloom MD Signed By: <Electronically signed by Tomer Bloom MD in OV> 02/24/25 1058 DD/ 1052 TD/TT: 02/24/25 1054 Candle Making Supervisor: Procedure Note Donotuseinterpreter, Image - 02/24/2025 [facility] [address] [place] [address] XRay Report Signed Patient: Chelsea Saucedo#: [id number] 1 : 9Acct:[id number] Age/Sex: 64 / FADM Date: 02/24/25 [facility] Dr: Miguelina Vu CONSTRUCTION CRAFT LABORER Ordering Physician: Miguelina Vu NP Date of Service: 02/24/25 Procedure(s): XR shoulder LT min 2V Accession Number(s): [id number] cc: Miguelina Vu NP Reason for Exam: L arm pain EXAMINATION: XR SHOULDER, LEFT CLINICAL INFORMATION: L arm pain COMPARISON: None available. TECHNIQUE: AP external rotation, Grashey, scapular Y, and axillary views of the left shoulder. FINDINGS: There has been resection of distal clavicle versus chronic resorption. AC joint is unremarkable otherwise. There are marginal osteophytes involving glenoid and humeral head. There are likely degenerative cystic changes in the lower glenoid. No other abnormalities are evident. 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 Electronically signed by: Tomer Bloom MD 02/24/2025 10:58 AM EDT Dictated By: Tomer Bloom MD Signed By: <Electronically signed by Tomer Bloom MD in OV> 02/24/25 1058 DD/ 1052 TD/TT: 02/24/25 1054 Candle Making Supervisor: Miguelina Vu MAPPING SPECIALIST IMG XR PROCEDURES Edited Result - Final * Albumin, Random Urine W/Creatinine (02/19/2025 11:30 AM EDT) Creatinine, Urine 148.81 mg/dL [facility] Microalbumin Urine 40.0 mg/L [facility] Microalbum Creatinine Ratio Ur 26.8 <30 ug/mg cr [facility] Comment:Albumin/Creatinine R atio Reference Ranges: Normal: < 30 ug/mg creatinine Microalbuminuria: 30 - 300 ug/mg creatinineClinical Albuminuria: > 300 ug/mg creatinine Urine (Urine, Random) 02/19/2025 11:30 AM EDT 02/19/2025 2:11 PM EDT [facility] URINE ORDERABLES Rose l Result Performing Organization Address [facility] Co de Phone Number [facility] [address] [place] [address] [phone] * (ABNORMAL) Basic Metabolic Panel (02/19/2025 11:29 AM EDT) Sodium 142 135 - 145 mmol/L [facility] Potassium 3.8 3.3 - 5.1 mmol/L [facility] Chloride 104 96 - 108 mmol/L [facility] Carbon Dioxide 30(H) 22 - 29 mmol/L [facility] Anion Gap 12 12 - 20 [facility] Urea Nitrogen (BUN) 16 9 - 16 mg/dL [facility] Creatinine, Serum 0.83 0.5 - 1.4 mg/dL [facility] Estimated Glomerular Filt Rate >60 [facility] Comment:Chronic Kidney Disea se: Estimated GFR < 60 mL/min/1.13s7Lluhyd Kidney Disease: Estimated GFR < 15 mL/min/1.73m2 Glucose 107 60 - 115 mg/dL [facility] Calcium 9.2 8.4 - 10.2 mg/dL [facility] Blood Venous blood specimen / Unknown 02/19/2025 11:29 AM EDT 02/19/2025 2:00 PM EDT [facility] BLOOD ORDERABLES Rose l Result Performing Organization Address [facility] Co de Phone Number [facility] [address] [place] [phone] * (ABNORMAL) Hemoglobin A1c (02/19/2025 11:25 AM EDT) Hemoglobin A1c 6.4(H) <6.0 % [facility] Comment:Hemoglobin A1C Refer ence Range Adults: 4.8 - 6.0 % Non diabetic: < 6.0 % Goal: < 7.0 %Additional Action Suggested: > 8.0 %Note: Hemoglobin A1c results are invalid for patients with abnormal amounts of HbF. Blood transfusions may impact the HbA1c concentration in the patient sample. Estimated Average Glucose 137 mg/dL [facility] Comment:eAG = Estimated ave rage glucose which is %A1C expressed asaverage glucose, using the formula of the T2E-NmfpomfWyacwyo Glucose study (ADAG), Diabetes Care, Vol.31,#8,2007 Blood Venous blood specimen / Unknown 02/19/2025 11:25 AM EDT 02/19/2025 2:00 PM EDT [facility] BLOOD ORDERABLES Rose l Result [facility] [address] [place] [phone] * (ABNORMAL) POCT glucose manually resulted (02/19/2025 10:01 AM EDT) Glucose Blood, POC 149 60 - 200 mg/dL [employer] Lot # Comment:[id number] Lot# Expiration Date Comment:05/24/2025 Blood Capillary blood specimen / Unknown 02/19/2025 10:01 AM EDT [facility] POINT OF CARE TEST ENTER/ EDIT ORDERABLES Final Result documented in this encounter Visit Diagnoses Diagnosis Type 2 diabetes mellitus with other specified complication, without long-term current use of insulin ([facility])- Primary Acute CVA (cerebrovascular accident) ([facility]) Left arm pain Pain in soft tissues of limb Subluxation of left shoulder joint, initial encounter Hyperlipidemia, unspecified hyperlipidemia type Left ventricular dysfunction Left heart failure Primary hypertension Unspecified essential hypertension documented in this encounter Additional Health Concerns Assessment Noted Time PHQ-9 Depression Total Score: 3 01/09/20 25 11:15 AM EDT documented as of this encounter Care Teams Production Grip Relationship Specialty Start Date End Date Miguelina uV CNP PCP - General Family Medicine 01/08/25 documented as of this encounter
--- NOTE | ~2025-02-24 | XR_ITS ---
EXAMINATION: XR SHOULDER, LEFT CLINICAL INFORMATION: L arm pain COMPARISON: None available. TECHNIQUE: AP external rotation, Grashey, scapular Y, and axillary views of the left shoulder. FINDINGS: There has been resection of distal clavicle versus chronic resorption. AC joint is unremarkable otherwise. There are marginal osteophytes involving glenoid and humeral head. There are likely degenerative cystic changes in the lower glenoid. No other abnormalities are evident. 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 Electronically signed by: Tomer Bloom MD 02/24/2025 10:58 AM EDT
--- OUTSIDE RECORDS SUMMARY | 2025-02-24 12:43 | XMS_ITS | Clinical Summary ---
Author Organization [facility] Address [address] [place] [phone] Care Team Providers Care Folder Machine Adjuster Name Role Phone Jovi Farmer MD Primary Care Provider [phone] Surgical History Surgery Date Site/Laterality Comments COLONOSCOPY 08/31/2017 PROCEDURE: HISTORICAL COLONOSCOPY; COMMENT: hemorrhoids; repeat in 10 yrs HYSTERECTOMY PROCEDURE: HISTORICAL HYSTERECTOMY; COMMENT: patient does not remember the year, or whether ovaries were removed. done in [place]. Medical History Medical History Date Comments Hypertension [...] Blood Test 05/15/2022 Falls Risk Assessment 10/27/2023 Depression Screening 06/05/2024 Breast Cancer Screening 01/10/2025 01/11/20 23, 01/07/2022, 01/05/2021, Additional history exists COVID-19 Vaccine ( - season) 2025 Influenza Vaccine (#1) 2025 DTaP,Tdap,and Td Vaccines [...] AM EDT Narrative 01/10/2023 10:16 AM EDT [facility] Diagnostic Imaging Department [address] [place] [address] Patient: BOWERSPRECIOUS /Age/Sex: 1960 - 62 - F Unit#: [id number] Location/Status: [facility] CLI Mnemonic/Ordering Site: [facility] Ordering Physician: ARVIND BUSTOS MD Sawyer Screening Digital - 01/10/23 - 1006 Report Status:Signed HISTORY: The patient is a 62-year-old female presenting for routine screening mammography. FINDINGS: Full-field digital mammography of the breasts bilaterally consisting of tomosynthesis in MLO and CC projection is performed in the [employer] 2000-D unit. Computer aided detection utilizing the [...] 1: Negative PQRI CPT II 3341F Code 67214, 61837 PQRI 225 CPT II 7025F Dictating Physician: JOSE ARMANDO EID MD Electronically Signed by: JOSE ARMANDO EID MD Dic Date/Time: 01/10/23 1009 Sign date/Time: 01/10/23 1016 Procedure Note Jose Armando Eid MD - 07/11/2023 [facility] Diagnostic Imaging Department [address] [place] [address] Patient: PRECIOUS BOWERS./Age/Sex: 1960 - 62 - F Unit#: [id number] [facility]ing Site[facility] Ordering Physician: ARVIND BUSTOS MD Sawyer Screening Digital - 01/10/23 - 1006 Report Status:Signed HISTORY: The patient is a 62-year-old female presenting for routinescreening mammography. FINDINGS: Full-field digital mammography of the breasts bilaterallyconsisting of tomosynthesis in MLO and CC projection is performed in the [employer] 2000-D unit. Computer aided detection utilizing the [...] 1: Negative PQRI CPT II 3341F Code 01854, 67395 PQRI 225 CPT II 7025F Dictating Physician: [...] (World Health Organization Fracture Risk Assessment) The [facility] Department of Internal Medicine recommends using National [...] alternative screening schedule based on darrell Kern., [facility] June 23, 2011 for [...] years. (World HealthOrganization Fracture Risk Assessment) The [facility] Department of Internal Medicine recommendsusing National Osteoporosis [...] alternative screening schedule based on darrell Kern., [facility] for patients with [...] Recently Relevant to Health Maintenance Care Teams Folder Machine Adjuster Relationship Specialty Start Date End Date Jovi Farmer MD PCP - General Internal Medicine 03/21/22
--- OUTSIDE RECORDS SUMMARY | 2025-02-24 12:43 | XMS_ITS | Encounter Summary ---
Author Organization [employer] Address [address] [place] [address] Care Team Providers Care Caustic Liquor Maker Name Role Phone Miguelina Vu CNP Primary Care Provider [phone] Encounter Details Date Type Department Care Team (Late st Contact Info) Description 02/20/2025 Telephone [facility] MEDICINE [address] [place], [place] [phone] Miguelina Vu CNP [address] [place] [address] Social History Tobacco Use Types Packs/Day Years [...] encounter Miscellaneous Notes * Telephone Encounter - Fely Sequeira LPN - 02/20/2025 10:11 AM EDT TC to Pt's daughter, Jacy Pineda, regarding recently submitted FMLA for intermittent care for pt. Daughter was able to provide all necessary information and stated that pt required two people to assist to bathroom. Pt's PCP is completing a PA for a walker for pt. Pt's daughter notified of PA in 2nd TC documented in this encounter Plan of Treatment Not on file documented as of this encounter Visit Diagnoses Not on filedocumented in this encounter Additional Health Concerns Assessment Noted Time PHQ-9 Depression Total Score: 3 01/09/20 25 11:15 AM EDT documented as of this encounter Care Teams Caustic Liquor Maker Relationship Specialty Start Date End Date Miguelina Vu CNP PCP - General Family Medicine 01/08/25 documented as of this encounter
--- OUTSIDE RECORDS SUMMARY | 2025-02-24 12:43 | XMS_ITS | Clinical Summary ---
Author Organization [employer] Address [address] [facility] 7[address] [place] [address] Care Team Providers Care Nuclear Reactor Operator Name Role Phone Miguelina Vu ANTONIO Primary Care Provider [phone] Allergies No known active allergies Medications * This document contains information received from the source organization and may not represent a complete record from that organization. amLODIPine (Norvasc) 10 MG tabletIndications :Hypertensive urgency Take 1 tablet (10 mg) by mouth Once per day. 30 tablet 3 01/09/20 25 Active losartan (Cozaar) 50 MG tabletIndications :Acute CVA (cerebrovascular accident) ([facility]/HCC) Take 1 tablet (50 mg) by mouth Once per day. 30 tablet 42 01/09/20 25 2028 Active Blood Pressure kitIndications:Hy pertensive urgency 1 kit in the morning. 1 kit 01/09/20 25 Active metFORMIN (Glucophage) 500 MG tabletIndications :Type 2 diabetes mellitus with other specified complication, without long-term current use of insulin ([facility]) Take 1 tablet (500 mg) by mouth with breakfast and with evening meal. 60 tablet 01/16/20 25 2025 Active Blood Glucose Monitoring Suppl kitIndications:Ty pe 2 diabetes mellitus with other specified complication, without long-term current use of insulin (CMS/HCC) 1 Units 3 times daily. 1 kit 01/16/20 25 Active FREESTYLE LITE test stripIndications: Type 2 diabetes mellitus with other specified complication, without long-term current use of insulin (CMS/HCC) Use to test blood sugar three times daily 100 each 01/16/20 25 2025 Active Lancets miscIndications:T ype 2 diabetes mellitus with other specified complication, without long-term current use of insulin (CMS/HCC) Use to test blood sugar three times daily 100 each 01/16/20 Active Alcohol Swabs 70 % padsIndications:T ype 2 diabetes mellitus with other specified complication, without long-term current use of insulin ([facility]) Use to test blood sugar three times daily 100 each 01/16/20 Active clopidogrel (Plavix) 75 MG tabletIndications :Cerebrovascular Accident Take 75 mg by mouth Once per day. 01/23/20 25 2024 Active Blood Glucose Monitoring Suppl (FreeStyle [place] Lite) w/Device kit TEST BLOOD SUGAR THREE TIMES DAILY 01/16/20 Active Aspirin Adult Low Strength 81 MG EC tabletIndications :Acute CVA (cerebrovascular accident) ([facility]) TAKE ONE TABLET EVERY DAY 30 tablet 02/20/20 25 Active carvedilol (Coreg) 6.25 MG tabletIndications :Acute CVA (cerebrovascular accident) ([facility]) Take 1 tablet (6.25 mg) by mouth 2 times daily. 60 tablet 02/20/20 25 2024 Active atorvastatin (Lipitor) 40 MG tabletIndications :Hyperlipidemia, unspecified hyperlipidemia type Take 1 tablet (40 mg) by mouth Once per day. 30 tablet 02/20/20 25 2024 Active Aspirin Low Dose 81 MG EC tabletIndications :Acute CVA (cerebrovascular accident) ([facility]) Take 1 tablet (81 mg) by mouth Once per day. 30 tablet 01/09/20 25 2024 Discontinued atorvastatin (Lipitor) 40 MG tabletIndications :Hyperlipidemia, unspecified hyperlipidemia type Take 1 tablet (40 mg) by mouth Once per day. 30 tablet 01/09/20 25 2024 Discontinued(R eorder (will not trigger notification to Pharmacy)) carvedilol (Coreg) 6.25 MG tabletIndications :Acute CVA (cerebrovascular accident) ([facility]) Take 1 tablet (6.25 mg) by mouth 2 times daily. 60 tablet 01/09/20 25 2024 Discontinued(R eorder (will not trigger notification to Pharmacy)) clopidogrel (Plavix) 75 MG tabletIndications :Acute CVA (cerebrovascular accident) ([facility]) Take 1 tablet (75 mg) by mouth [...] ordered today Pt also would benefit from NAVAL ARCHITECT SPECIALIST services, due to insurance coverage we will [...] organization. Date Type Department Care Team Description 02/21/2025 Telephone [facility] MED & PEDS [address] [place] [address] Miguelina Vu CNP Durable Medical Equipment 02/20/2025 Telephone [facility] MEDICINE [address] [place] [address] Miguelina Vu CNP 02/19/2025 9:45 AM EDT Office Visit [facility] MED & PEDS [address] [place] [address] Miguelina Vu CNP Type 2 diabetes mellitus with other specified complication, without long-term current use of insulin (CMS/[facility]) (Primary Dx); Acute CVA (cerebrovascular accident) (CMS/HCC); Left arm pain; Subluxation of left shoulder joint, initial encounter; Hyperlipidemia, unspecified hyperlipidemia type; Left ventricular dysfunction; Primary hypertension 02/19/2025 Telephone [facility] MEDICINE [address] [place] [address] Miguelina Vu CNP Letter for School/Work 02/19/2025 Refill [facility] MEDICINE [address] [place] [address] Miguelina Vu CNP Acute CVA (cerebrovascular accident) (CMS/HCC) 02/19/2025 Travel 02/12/2025 Patient Outreach [facility] MEDICINE [address] [place] [address] Miguelina Vu CNP Pre-visit Planning (Pre visit planning LVM ) 02/05/2025 Telephone [facility] OPTOMETRY [address] [place] [address] Renetta Boles, ANDIE 02/04/2025 Telephone [facility] MED & PEDS [address] [place], [place] [phone] Miguelina Vu CNP chart prep 01/15/2025 Refill [facility] MEDICINE [address] [place] [address] Hyacinth Galeana, BELTRAN Type 2 diabetes mellitus with other specified complication, without long-term current use of insulin (CMS/HCC) 01/15/2025 Orders Only [facility] MEDICINE [address] [place] [address] Miguelina Vu CNP Type 2 diabetes mellitus with other specified complication, without long-term current use of insulin ([facility]) (Primary Dx) 01/15/2025 Results Follow-Up [facility] MEDICINE [address] [place] [address] Miguelina Vu CNP Basic Metabolic Panel, CBC auto differential, TSH W/Reflex to FT4, Additional followed-up results: 2 01/08/2025 10:15 AM EDT Office Visit [facility] MEDICINE [address] [place] [address] Miguelina Vu CNP Encounter to establish care (Primary Dx); Acute CVA (cerebrovascular accident) (CMS/HCC); Intracranial vascular stenosis; Hypertensive urgency; Left-sided weakness; Hyperlipidemia, unspecified hyperlipidemia type; Postmenopause; Encounter for screening mammogram for breast cancer; Encounter for screening for malignant neoplasm of colon; Anxiety 01/08/2025 Travel 01/01/2025 Patient Outreach [facility]ED[facility] [address] [facility] [place] [address] Miguelina Vu CNP Pre-visit Planning (SDOH negative, Tobacco screening negative.) 12/27/2024 Telephone [facility] MED & PEDS [address] [place] [address] Yair Blackman MD [facility] - New Patient [...] Eye Exam 1968 Hepatitis C Screening 1976 Pneumococcal Vaccine: 50+ Years (1 of 2 - PCV) 1977 Mammogram 1998 Zoster Vaccines (1 of 2) 2008 COVID-19 Vaccine (1 - 2023-2 5 season) 2025 Influenza Vaccine (#1) 2025 Diabetes: Hemoglobin A1C 08/19/2025 025, 01/08/2025 SDOH Screening 01/01/2026 01/01/2025 Alcohol/Substance Use Screening 01/08/2026 01/08/2025 Depression Screening 01/08/2026 01/08/2025, 01/08/2025 Lipid Panel 01/08/2026 01/08/2025 Tobacco Screening 01/08/2026 01/08/2025 Diabetes: Urine Protein Screening 02/19/2026 02/19/2025 DTaP/Tdap/Td Vaccines (2 - T d or [...] complication, without long-term current use of insulin (CMS/[facility]) BASIC METABOLIC PANEL Routine 02/19/2025 11:29 AM [...] use of insulin (CMS/HCC) HEMOGLOBIN A1C Routine 01/08/2025 12:06 PM EDT [...] care from Last 3 Months Results * XR Shoulder 2+ Views Left (02/24/2025 10:52 AM EDT) Anatomical Region Laterality Modality Upper Extremities, Shoulder Left Radi ographic Imaging 02/24/2025 10:5 2 AM EDT Narrative 02/24/2025 11:01 AM EDT [address] [address] XRay Report Signed Patient: Precious Saucedo MR#: [id number] 1 : 1960 Acct:[id number] Age/Sex: 64 / F ADM Date: 02/24/25 Loc: HO.HHCX Attending Dr: Miguelina Vu CAUSTIC PREPARER Ordering Physician: Miguelina Vu NP Date of Service: 02/24/25 Procedure(s): XR shoulder LT min 2V Accession Number(s): [id number] cc: Miguelina Vu NP Reason for Exam: [...] Tomer Bloom MD 02/24/2025 10:58 AM EDT RP Dictated By: Tomer Bloom MD Signed By: <Electronically signed by Toemr Bloom MD in OV> 02/24/25 1058 DD/ 1052 TD/TT: 02/24/25 105 Grain Sampler: Procedure Note Donotuseinterpreter, Image - 02/24/[address] [address] XRay Report Signed Patient: Chelsea Saucedo#: [id number] 1 : 9Acct:[id number] Age/Sex: 64 / FADM Date: 02/24/25 Loc: ROSANNA.HHCX Attending Dr: Miguelina Vu CAUSTIC PREPARER Ordering Physician: Miguelina Vu NP Date of Service: 02/24/25 Procedure(s): XR shoulder LT min 2V Accession Number(s): [id number] cc: Miguelina Vu NP Reason for Exam: [...] Tomer Bloom MD 02/24/2025 10:58 AM EDT RP Dictated By: Tomer Bloom MD Signed By: <Electronically signed by Tomer Bloom MD in OV> 02/24/25 1058 DD/ 1052 TD/TT: 02/24/25 105 Grain Sampler: Miguelina Vu [facility] IMG XR PROCEDURES Edited Result - Final * Albumin, Random Urine W/Creatinine (02/19/2025 11:30 AM EDT) Creatinine, Urine 148.81 mg/dL [facility] Microalbumin Urine 40.0 mg/L [facility] Microalbum Creatinine Ratio Ur 26.8 <30 ug/mg cr [facility] Comment:Albumin/Creatinine R atio Reference Ranges: Normal: < 30 ug/mg creatinine Microalbuminuria: 30 - 300 ug/mg creatinineClinical Albuminuria: > 300 ug/mg creatinine Urine (Urine, Random) 02/19/2025 11:30 AM EDT 02/19/2025 2:11 PM EDT Miguelina Vu [facility] LAB URINE ORDERABLES Rose l Result [facility] [address] [place] [phone] * (ABNORMAL) Basic Metabolic Panel (02/19/2025 11:29 AM EDT) Only the most recent of2 resultswithin the time period is included. Sodium 142 135 - 145 mmol/L [facility] Potassium 3.8 3.3 - 5.1 mmol/L [facility] Chloride 104 96 - 108 mmol/L [facility] Carbon Dioxide 30(H) 22 - 29 mmol/L [facility] Anion Gap 12 12 - 20 [facility] Urea Nitrogen (BUN) 16 9 - 16 mg/dL [facility] Creatinine, Serum 0.83 0.5 - 1.4 mg/dL [facility] Estimated Glomerular Filt Rate >60 [facility] Comment:Chronic Kidney Disea se: Estimated GFR < 60 mL/min/1.58m2Zvxiyn Kidney Disease: Estimated GFR < 15 mL/min/1.73m2 Glucose 107 60 - 115 mg/dL [facility] Calcium 9.2 8.4 - 10.2 mg/dL [facility] Blood Venous blood specimen / Unknown 02/19/2025 11:29 AM EDT 02/19/2025 2:00 PM EDT [facility] LAB BLOOD ORDERABLES Rose l Result Performing Organization Address [facility] Co de Phone Number [facility] [address] [place] [phone] * (ABNORMAL) Hemoglobin A1c (02/19/2025 11:25 AM EDT) Only the most recent of2 resultswithin the time period is included. Hemoglobin A1c 6.4(H) <6.0 % [facility] Comment:Hemoglobin A1C Refer ence Range Adults: 4.8 - 6.0 % Non diabetic: < 6.0 % Goal: < 7.0 %Additional Action Suggested: > 8.0 %Note: Hemoglobin A1c results are invalid for patients with abnormal amounts of HbF. Blood transfusions may impact the HbA1c concentration in the patient sample. Estimated Average Glucose 137 mg/dL [facility] Comment:eAG = Estimated ave rage glucose which is %A1C expressed asaverage glucose, using the formula of the A7E-MhkrmdyCxamgjt Glucose study (ADAG), Diabetes Care, Vol.31,#8,2007 Blood Venous blood specimen / Unknown 02/19/2025 11:25 AM EDT 02/19/2025 2:00 PM EDT [facility] LAB BLOOD ORDERABLES Rose l Result Performing Organization Address City/[facility] Co de Phone Number [facility] [address] [place] [phone] * (ABNORMAL) POCT glucose manually resulted (02/19/2025 10:01 AM EDT) Glucose Blood, POC 149 60 - 200 mg/dL [employer] Media Lot # Comment:[id number] Lot# Expiration Date Comment:05/24/2025 Blood Capillary blood specimen / Unknown 02/19/2025 10:01 AM EDT [facility] ENGINE COWLING INSTALLER POINT OF CARE TEST ENTER/ EDIT ORDERABLES Final Result * TSH W/Reflex to FT4 (01/08/2025 12:06 PM EDT) Pathologist [facility] TSH reflex Free T4 2.26 0.32 - 4.0 uIU/mL [facility] Blood Venous blood specimen / Unknown 01/08/2025 12:06 PM EDT 01/08/2025 1:36 PM EDT [facility] ENGINE COWLING INSTALLER LAB BLOOD ORDERABLES Rose l Result [facility] [address] [place] [phone] * CBC auto differential (01/08/2025 12:06 PM EDT) Pathologist [facility] White Blood Count 5.6 4.8 - 10.8 X10*3/uL [facility] Red Blood Count 4.52 4.20 - 5.50 X10*6/uL [facility] Hemoglobin 13.4 12.0 - 16.0 g/dl [facility] Hematocrit 40.4 37.0 - 47.0 % [facility] Mean Corpuscular Volume 89.4 80.0 - 98.0 fL [facility] Mean Corpuscular Hemoglobin 29.6 27.0 - 33.0 pg [facility] Mean Corpuscular HGB Conc 33.2 31.0 - 35.0 g/dl [facility] Red Cell Distribution Width 13.4 11.0 - 16.0 % [facility] Platelet Count 226 160 - 400 X10*3/uL [facility] Mean Platelet Volume 11.3 9.4 - 12.3 fL [facility] Neutrophils Percent Auto 66.4 45 - 73 % [facility] Imm Gran Pct Auto 0.4 0.0 - 0.4 % [facility] Lymphocytes Percent Auto 24.7 20 - 40 % [facility] Monocytes Percent Auto 5.5 2 - 11 % [facility] Eosinophils Percent Auto 2.5 0 - 4 % [facility] Basophils Percent Auto 0.5 0 - 2 % [facility] NRBC Pct Auto 0.0 0.0 - 0.2 /100WBC [facility] Neutrophils Absolute Auto 3.7 2.0 - 8.3 x10*3/uL [facility] Imm Gran Abs Auto 0.02 0.00 - 0.03 X10*3/uL [facility] Lymphocytes Absolute Auto 1.4 1.2 - 4.9 X10*3/uL [facility] Monocytes Absolute Auto 0.3 0.1 - 1.2 X10*3/uL [facility] Eosinophils Absolute Auto 0.1 0.0 - 0.4 X10*3/uL [facility] Basophils Absolute Auto 0.0 0.0 - 0.2 X10*3/uL [facility] NRBC Abs Auto 0.000 0.0 - 0.012 X10*3/uL [facility] Blood Venous blood specimen / Unknown 01/08/2025 12:06 PM EDT 01/08/2025 1:36 PM EDT Miguelina Vu [facility] BLOOD ORDERABLES Rose l Result [facility] [address] [place] [phone] * Lipid Panel, Standard (01/08/2025 12:06 PM EDT) Triglycerides 64 <150 mg/dL [facility] Comment:Desirable Triglyceri de: less than 150 mg/dLBorderline High Triglyceride 150-199 mg/dLHigh Triglyceride: 200-499 mg/dLVery High Triglyceride: greater than or equal to 5OO mg/dL Cholesterol 129 <200 mg/dL [facility] Comment:Desirable Cholestero l: less than 200 mg/dLBorderline High Cholesterol: 200-239 mg/dLHigh Cholesterol: greater than 239 mg/dL LDL Cholesterol Calculated 64 <100 mg/dL [facility] Comment:Desirable LDL: less than 100 mg/dLNear Optimal/Above Optimal LDL: 110- 129 mg/dLBorderline High LDL: 130-159 mg/dLHigh LDL: 160-189 mg/dLVery High LDL: greater than or equal to 190 mg/dL HDL Cholesterol 53 >40 mg/dL [facility] Comment:Desirable HDL: great er than 40 mg/dL Note: This HDL assay may give artificially low results in patients with liver disease. Blood Venous blood specimen / Unknown 01/08/2025 12:06 PM EDT 01/08/2025 1:36 PM EDT Miguelina Vu CNP LAB BLOOD ORDERABLES Rose ibanez Result [facility] [address] [place] [phone] [phone] from Last 3 Months Insurance [facility] Care Teams Nuclear Reactor Operator Relationship Specialty Start Date End Date Miguelina Vu CNP PCP - General Family Medicine 01/08/25
--- OUTSIDE RECORDS SUMMARY | 2025-02-24 12:43 | XMS_ITS | Encounter Summary ---
Author Organization [employer] Address [address] [facility] 7[address] [place] [address] Care Team Providers Care Scrap Drop Engineer Name Role Phone Miguelina Vu CNP Primary Care Provider [phone] Reason for Visit * Reason Comments Med Refill Encounter Details Date Type Department Care Team (Late st Contact Info) Description 02/19/2025 Refill [facility] MEDIC[facility] [address] [place] [address] Miguelina Vu CNP [address] [place], [place] [phone] Acute CVA (cerebrovascular accident) ([facility]) Social History Tobacco Use Types Packs/Day Years [...] documented as of this encounter Care Teams Scrap Drop Engineer Relationship Specialty Start Date End Date Miguelina Vu CNP PCP - General Family Medicine 01/08/25 documented as of this encounter
--- OUTSIDE RECORDS SUMMARY | 2025-02-24 12:43 | XMS_ITS | Clinical Summary ---
Author Organization [facility] Address [address] [address] Care Team Providers Care Online Program Coordinator Name Role Phone Unavailable Primary Care Provider [...]
--- OUTSIDE RECORDS SUMMARY | 2025-02-24 12:43 | XMS_ITS | Encounter Summary ---
Author Organization [employer] Address [address] [place] [address] Care Team Providers Care Landscape Crew Leader Name Role Phone Miguelina Vu CNP Primary Care Provider [phone] Reason for Visit * Reason Onset Date Comments Durable Medical Equipment 02/21/2025 Encounter Details Date Type Department Care Team ([facility] st Contact Info) Description 02/21/2025 Telephone [facility] [address] [place], [place] [phone] Miguelina Vu CNP [address] [place], [place] [phone] Durable Medical Equipment Social History Tobacco Use Types Packs/Day Years [...] encounter Miscellaneous Notes * Telephone Encounter - Ada Gabriel LPN - 02/21/2025 2:52 PM EDT Rx generated and faxed to [facility] ----- Message from Miguelina Vu sent at 02/20/2025 10:08 AM EDT ----- Good morning, can we process a DME request for a walker for this patient, she suffers from residualL sided weakness s/p acute CVA and would benefit from a two wheeled rolling walker. Please see attached note from OV 02/19/25 and please let me know if any questions! Thank you documented in this encounter Plan of Treatment Not on file documented as of this encounter Visit Diagnoses Not on filedocumented in this encounter Additional Health Concerns Assessment Noted Time PHQ-9 Depression Total Score: 3 01/09/20 11:15 AM EDT documented as of this encounter Care Teams Landscape Crew Leader Relationship Specialty Start Date End Date Miguelina Vu CNP PCP - General Family Medicine 01/08/25 documented as of this encounter
--- OUTSIDE RECORDS SUMMARY | 2025-02-24 12:43 | XMS_ITS | Encounter Summary ---
Author Organization [employer] Address [address] [place] [address] Care Team Providers Care Licensed And Certified Midwife Name Role Phone Miguelina Vu ANTONIO Primary Care Provider [phone] Encounter Details Date Type Department Care Team [...] documented as of this encounter Care Teams Licensed And Certified Midwife Relationship Specialty Start Date End Date Miguelina Vu CNP PCP - General Family Medicine 01/08/25 documented as of this encounter
--- OUTSIDE RECORDS SUMMARY | 2025-02-24 12:43 | XMS_ITS | Encounter Summary ---
Author Organization [employer] Address [address] [place] [address] Care Team Providers Care [employer] Flat[employer] Driver Name Role Phone Miguelina Vu CNP Primary Care Provider [phone] Reason for Visit * Reason Onset Date Comments Letter for School/Work 02/19/2025 Encounter Details Date Type Department Care Team (Late st Contact Info) Description 02/19/2025 Telephone [facility] [address] [place], [place] [phone] Miguelina Vu CNP [address] [place], [place] [phone] Letter for School/Work Social History Tobacco Use [...] encounter Miscellaneous Notes * Telephone Encounter - Radha Seaman RN - 02/19/2025 3:15 PM EDT TC from daughter reports pt was seen today by ASHLEY Vu . Needing excuse letter to provide to her work Note generated and daughter will excelsior picker in [place] * Telephone Encounter - Alec Humphrey - [...] documented as of this encounter Care Teams [employer] Driver Relationship Specialty Start Date End Date Miguelina Vu CNP PCP - General Family Medicine 01/08/25 documented as of this encounter
== END 2025-02-24 10:27 | disposition home or self-care (01) ==
LOC: HO.HHCX 10:26
DX: M79.602 Pain in left arm (principal)
CPT/HCPCS: 73030

== ENCOUNTER → 2025-02-24 10:31 | Outpatient (BNV) | payer SELFPAY | PROVIDERS: Visit Provider Radiology Diagnostic Radiology | DX: M19.012 Primary osteoarthritis, left shoulder (principal) | CPT/HCPCS: 73030 ==